=== PATIENT | female | born 1970 | race Caucasian/White ===

== ENCOUNTER → 2017-09-13 | Outpatient (CLI) | payer OTHER ==
[~2017-09-13] MED LIST: PERCOCET 5/3251 EACH PO
[2017-09-13 11:07] LABS: HEMOGLOBIN 12.3 g/dL (12.2-16.2); LYMPH # 1.7 K/mm3 (0.7-4.5); LYMPH % 31.5 % (10-50.0)
[2017-09-13 12:20] LABS: BUN 8 mg/dL (7-18)
[2017-09-13 12:24] LABS: GFR (ESTIMATED) 107 ML/MIN (59-)
== END ==
LOC: LAB 10:36
PROVIDERS: Nurse Practitioner Obstetrics & Gynecology
DX: D25.9 Leiomyoma of uterus, unspecified (principal); R10.2 Pelvic and perineal pain; N91.2 Amenorrhea, unspecified; Z01.812 Encounter for preprocedural laboratory examination

== ENCOUNTER 2017-09-15 06:09 | Observation (INO) | payer OTHER ==
[~2017-09-15] VITALS: Ht 160 cm; Wt 57.6 kg
[2017-09-15] VITALS (18 sets, daily range): BP systolic 87–120; BP diastolic 43–70
--- OUTSIDE RECORDS SUMMARY | 2017-09-15 06:14 | External Medical Summary Rpt | CCD ---
Author Author , ISMAEL GUEVARA Address Unknown Phone [email or web address] Purpose Continuity of Care Document - 03-29-2017 through 2016 Problems Code Diagnosis DOS Provider Status N92.1 EXCESSIVE 07-19-2017 AND FREQUENT MENSTRUATIO N WITH IRREGULAR CYCLE D50.9 IRON 04-15-2017 DEFICIENCY ANEMIA, UNSPECIFIED K21.9 GASTRO-ESOP 04-15-2017 HAGEAL REFLUX DISEASE WITHOUT ESOPHAGITIS K29.50 UNSPECIFIED 04-15-2017 CHRONIC GASTRITIS WITHOUT BLEEDING R00.0 TACHYCARDIA 04-15-2017 , UNSPECIFIED Z72.0 TOBACCO USE 04-15-2017 D64.9 ANEMIA, 03-29-2017 UNSPECIFIED Results Labs Lab Lab Date Result Refere Interp Status Commen Order Detail nces retati t Range on CBC w auto diff (09-13-2017 10:39) Automat = 0.0 0-0.2 complet ed 017 K/MM3 ed blood 10:39 basophi l count (count/ vo Baso % = 0.7 % 0.1-2.0 complet 017 ed 10:39 Automat = 0.1 0.0-0.4 complet ed 017 K/mm3 ed blood 10:39 eosinop hil count Automat = 2.6 % 0.1-12. complet ed 017 0 ed blood 10:39 eosinop hils/10 0 leukocy t Blood = 3.2 1.8-7.8 complet granulo 017 K/mm3 ed cytes 10:39 automat ed count (numb Granulo = 57.9 37.0-80 complet cyte 017 % .0 ed percent 10:39 age Blood = 39.8 37.0-47 complet hematoc 017 % .0 ed rit 10:39 (volume fractio n) Blood = 12.3 12.2-16 complet hemoglo 017 g/dL .2 ed bin 10:39 measure ment (mass/v olum Absolut = 1.7 0.7-4.5 complet e 017 K/mm3 ed lymphoc 10:39 yte count Lymphoc = 31.5 10-50.0 complet yte 017 % ed count, 10:39 blood, automat ed Mean = 25.4 27-31.2 complet corpusc 017 pg ed ular 10:39 hemoglo bin ([facility]) determ Automat = 30.9 31.8-35 complet ed 017 g/dl .4 ed erythro 10:39 cyte mean corpusc ular h Automat = 82.2 82.2-97 complet ed 017 fl .8 ed erythro 10:39 cyte mean corpusc ular v Absolut = 0.4 0.1-1.0 complet e 017 K/mm3 ed monocyt 10:39 e count [place] % = 7.3 % 1.7-9.3 complet 017 ed 10:39 Automat = 7.5 7.4-10. complet ed 017 fl 4 ed blood 10:39 platele t mean volume mariluz Blood = 356 142-424 complet platele 017 K/mm3 ed t count 10:39 Red = 4.85 4.2-5.4 complet blood 017 M/mm3 ed cell 10:39 count Automat = 15.9 11.5-17 complet ed 017 % .5 ed erythro 10:39 cyte distrib ution width Blood = 5.5 4.8-10. complet leukocy 017 K/MM3 8 ed triny 10:39 count (number /volume ) Basic metabolic panel (09-13-2017 10:39) Serum = 8 7-18 complet or 017 mg/dL ed plasma 10:39 urea nitroge n measure men Serum = 9.2 8.5-10. complet or 017 mg/dL 1 ed plasma 10:39 calcium measure ment (mas Serum = 102 98-107 complet or 017 mmoL/L ed plasma 10:39 chlorid e measure ment (mo Carbon = 28 21.0-32 complet dioxide 017 mmoL/L .0 ed 10:39 measure ment Serum 2 = 0.6 0.55-1. complet or 017 mg/dL 02 ed plasma 10:39 creatin ine measure ment ( Estimat = 107 59- complet ed 017 ML/MIN ed glomeru 10:39 lar filtrat ion rate (GF Comment: REFERENCE RANGE: >60 ML/MIN/1.73 SQUARE METERS Comment: If this patient is -Italian, then multiply the Comment: result by 1.210. Serum = 89 74-106 complet or 017 mg/dL ed plasma 10:39 glucose measure ment (mas Serum = 4.1 3.5-5.1 complet potassi 017 mmoL/L ed um 10:39 measure ment Serum = 135 136-145 complet sodium 017 mmoL/L ed measure 10:39 ment Serum test (09-13-2017 10:39) Serum 2 = NEG complet pregnan 017 NEGATIV ed cy test 10:39 E
--- OUTSIDE RECORDS SUMMARY | 2017-09-15 06:14 | External Medical Summary Rpt | CCD ---
Author Author [employer] Organization [employer] Address Unknown Phone Unavailable Purpose Continuity of Care Document - through 2016
--- OUTSIDE RECORDS SUMMARY | 2017-09-15 06:14 | External Medical Summary Rpt | CCD ---
Author Author , ISMAEL GUEVARA Address Unknown Phone [email or web address] Purpose Continuity of Care Document - 03-29-2017 [...] 017 K/mm3 ed monocyt 10:39 e count [place] % = 7.3 % 1.7-9.3 complet 017 [...] SQUARE METERS Comment: If this patient is -Bahamian, then multiply the Comment: result by 1.210. [...]
--- OUTSIDE RECORDS SUMMARY | 2017-09-15 06:14 | External Medical Summary Rpt | CCD ---
Demographics Preferred Language Kazakh Marital Status Unknown Jehovah'S Witness Affiliation Unknown Race Unknown Ethnic Group Unknown Author Author , AUDREY GUEVARA Address Unknown Phone Immunization No patient found.
--- OUTSIDE RECORDS SUMMARY | 2017-09-15 06:14 | External Medical Summary Rpt | CCD ---
Demographics Preferred Language Nepali Marital Status Unknown Hoahaoism Affiliation Unknown Race Unknown Ethnic Group Unknown Author Author , AUDREY GUEVARA Address Unknown Phone Immunization No patient found.
--- OUTSIDE RECORDS SUMMARY | 2017-09-15 06:15 | External Medical Summary Rpt ---
Author Author ISMAEL Carl, AUGUSTDARELL [employer] Organization [employer] Address Unknown Phone Unavailable Results Choriogonadotropin [Units/volume] in Serum or Plasma Observa Value Referen Units Interpr Notes Date tion ce etation Range Choriogon NEG No No No Sep 13 adotropin informati informati informati 2017 on in on in on in 10:39 AM [Units/vo source source source lume] in data data data Serum or Plasma Basic metabolic panel in Blood Observa Value Referen Units Interpr Notes Date tion ce etation Range Urea 7 - 18 mg/dL Normal No Sep 13 nitrogen informati 2016 [Mass/vol on in 10:39 AM ume] in source Serum or data Plasma Calcium 8.5 - mg/dL Normal No Sep 13 [Mass/vol 10.1 informati 2016 ume] in on in 10:39 AM Serum or source Plasma data Chloride 98 - 107 mmoL/L Normal No Sep 13 [Moles/vo informati 2016 lume] in on in 10:39 AM Serum or source Plasma data Carbon 21.0 - mmoL/L Normal No Sep 13 dioxide, 32.0 informati 2016 total on in 10:39 AM [Moles/vo source lume] in data Serum or Plasma Creatinin 0.55 - mg/dL Normal No Sep 13 e 1.02 informati 2016 [Mass/vol on in 10:39 AM ume] in source Serum or data Plasma Estimated 59- ML/MIN No REFERENCE Sep 13 informati RANGE: 2017 glomerula on in >60 10:39 AM r source ML/MIN/1. filtratio data 73 SQUARE n rate METERSIf (GF this patient is -A merican, then multiply theresult by 1.210. Glucose 74 - 106 mg/dL Normal No Sep 13 [Mass/vol informati 2016 ume] in on in 10:39 AM Serum or source Plasma data Potassium 3.5 - 5.1 mmoL/L Normal No Sep 13 informati 2016 [Moles/vo on in 10:39 AM lume] in source Serum or data Plasma Sodium 136 - 145 mmoL/L Low No Sep 6 [Moles/vo 2016 lume] in on in 10:39 AM Serum or source Plasma data CBC W Auto Differential panel in Blood Observa Value Referen Units Interpr Notes Date tion ce etation Range Basophils 0 - 0.2 K/MM3 Normal No Sep 6 2016 [#/volume on in 10:39 AM ] in source Blood by data Automated count Basophils 0.1 - 2.0 % Normal No Sep 6 /100 inform2016 leukocyte on in 10:39 AM s in source Blood by data Automated count Eosinophi 0.0 - 0.4 K/mm3 Normal No Sep 6 ls 2016 [#/volume on in 10:39 AM ] in source Blood by data Automated count Eosinophi 0.1 - % Normal No Sep 6 ls/100 12.0 inform2016 leukocyte on in 10:39 AM s in source Blood by data Automated count Granulocy 1.8 - 7.8 K/mm3 Normal No Sep 6 triny 2016 [#/volume on in 10:39 AM ] in source Blood by data Automated count Granulocy 37.0 - % Normal No Sep 6 triny/100 80.0 2016 leukocyte on in 10:39 AM s in source Blood by data Automated count Hematocri 37.0 - % Normal No Sep 6 t [Volume 47.0 2016 on in 10:39 AM Fraction] source of Blood data Hemoglobi 12.2 - g/dL Normal No Sep 6 n 16.2 2016 [Mass/vol on in 10:39 AM ume] in source Blood data Lymphocyt 0.7 - 4.5 K/mm3 Normal No Sep 6 es 2016 [#/volume on in 10:39 AM ] in source Unspecifi data ed specimen by Automated count Lymphocyt 10 - 50.0 % Normal No Sep 6 es 2016 [#/volume on in 10:39 AM ] in source Unspecifi data ed specimen by Automated count Erythrocy 27 - 31.2 pg Low No Sep 6 te mean 2016 corpuscul on in 10:39 AM ar source hemoglobi data n [Entitic mass] Erythrocy 31.8 - g/dl Low No Sep 13 te mean 35.4 2016 corpuscul on in 10:39 AM ar source hemoglobi data n concentra tion [Mass/vol ume] by Automated count Erythrocy 82.2 - fl Normal No Sep 13 te mean 97.8 2016 corpuscul on in 10:39 AM ar volume source [Entitic data volume] by Automated count Monocytes 0.1 - 1.0 K/mm3 Normal No Sep 132016 [#/volume on in 10:39 AM ] in source Blood by data Automated count Monocytes 1.7 - 9.3 % Normal No Sep 13 /100 2016 leukocyte on in 10:39 AM s in source Blood by data Automated count Platelet 7.4 - fl Normal No Sep 13 mean 10.4 2016 volume on in 10:39 AM [Entitic source volume] data in Blood by Automated count Platelets 142 - 424 K/mm3 Normal No Sep 132016 [#/volume on in 10:39 AM ] in source Blood data Erythrocy 4.2 - 5.4 M/mm3 Normal No Sep 6 triny 2016 [#/volume on in 10:39 AM ] in source Amniotic data fluid Erythrocy 11.5 - % Normal No Sep 13 te 17.5 2016 distribut on in 10:39 AM ion width source [Entitic data volume] by Automated count Leukocyte 4.8 - K/MM3 Normal No Sep 6 s 10.8 2016 [#/volume on in 10:39 AM ] in source Blood data
--- NOTE | 2017-09-15 09:30 | Operative Note ---
Procedure/Operative Record Procedure Date of procedure: 09/15/17 Pre-Op Dx: Menorrhagia, fibroid uterus Post-Op Dx: Menorrhagia, fibroid uterus Procedure performed: Laparoscopically assisted vaginal hysterectomy and bilateral salpingectomy Surgeon: Dr. Imtiaz Hines Hard Tile Setter Apprentice(s): Maricarmen Rivas Anesthesia: Danny Elías EBL (ml): 250 Clinical note: She is a 46-year-old lady who complains of extremely heavy periods. An ultrasound showed a fibroid uterus with at least 2 fibroids 3-1/2-4 cm in size. After having discussed the risks and benefits we elected to perform a laparoscopic-assisted vaginal hysterectomy and bilateral salpingectomy. Operative findings: She had an enlarged fibroid uterus with a 3 cm fibroid anteriorly as well as a fibroid intramurally posteriorly. The RIGHT ovary had a 4 cm ovarian cyst that was filled with straw-colored fluid. The tubes at previous been ligated. The rest the pelvis appeared normal. Operative note: She was taken the operating room where general anesthesia was found be adequate. She was prepped and draped in normal sterile fashion in the lithotomy position. A weighted speculum was placed in the vagina and the anterior lip of the cervix was grasped with a tenaculum. Gunter dilators were used to dilate the cervix to approximately 4 mm. We then inserted a Bonita uterine manipulator into the uterine cavity and insufflated the balloon. We then placed the patient and the semi- lithotomy position. I then changed gloves and injected 10 mL of 0.5 percent ropivacaine around the M like this. I made a small incision within the umbilicus and inserted a Veress needle into the abdominal cavity. The abdominal cavity was then insufflated with carbon dioxide gas to a pressure of 20 mmHg. I then inserted an 11 mm trocar under direct vision. I injected through and through at the pubic hairline, made a small incision here and inserted a 5 mm trocar under direct vision. I identified the inferior epigastric arteries on the LEFT side, went lateral to these and injected through and through. I made a small skin incision and inserted an 11 mm trocar under direct vision. This was similarly performed on the patient's RIGHT side. The LEFT round ligament was then grasped and cut with Harmonic scalpel. I then opened up the anterior aspect of the peritoneum to the midline. I then took down the LEFT tube and LEFT utero-ovarian ligament with Harmonic scalpel. I took down the posterior aspect of the broad ligament to the level of the uterosacral ligament area I skeletonize uterine arteries and then placed hemoclips on the uterine arteries. These were then cut adjacent to the cervix. I further took down the bladder anteriorly and laterally with Harmonic scalpel. I then turned my attention to the RIGHT side and took down the round ligament with Harmonic scalpel. I opened up the anterior. Peritoneum once again with Harmonic scalpel joining up with the other side. I further took down the bladder anteriorly. I then grasped the LEFT tube and cut through this with Harmonic scalpel. This was followed by the RIGHT utero-ovarian ligament. The process of the broad ligament was then taken down with Harmonic scalpel. I skeletonize uterine arteries. Hemoclips were then applied to the uterine arteries and I cut through the uterine arteries with Harmonic scalpel staying adjacent to the cervix. The bladder was then further taken down both anteriorly and laterally. At this time was noted that the uterus was completely ischemic. The distal end of the LEFT tube was then grasped and using harmonic scalpel I cut along the meso salpinx. The tube was removed through the 11 mm trocar site. This was similarly performed on the patient's RIGHT side. I then opened up the cyst on the patient's RIGHT ovary and allowed this straw-colored fluid to drain out. After once again assuring hemostasis we let the gas out of the abdomen. We then prepped the patient for the vaginal portion of her surgery. The patient was placed in lithotomy position and a weighted speculum place in the vagina. The anterior and posterior lip of the cervix were grasped with Lundy tenacula. I then injected 20 mL of 1 percent Xylocaine with epinephrine circumferentially about the cervix. I then circumscribed the cervix with knife. I opened up and the posterior cul-de-sac and then placed a long weighted speculum through the defect. The LEFT uterosacral ligament was then clamped cut suture ligated, tagged and tied. This was followed by the LEFT cardinal ligament which was clamped cut and suture ligated. I then clamped cut suture-ligated and tagged the RIGHT uterosacral ligament. This was followed by the RIGHT cardinal ligament which was clamped cut and suture ligated. I grasped the anterior vaginal mucosa and using both sharp and blunt dissection I dissected the bladder off the anterior cervix. I opened up into the anterior cul-de-sac and lysed a [place] retractor through this defect. I then clamped cut and suture ligated the remaining tissue attaching the cervix to the pelvic sidewall. This was performed bilaterally. The uterus is then completely free and was removed through the vagina. I then replaced the long weighted speculum short weighted speculum and closed the posterior cuff using running 2-0 Vicryl suture in a locked fashion. This was followed by placing a Vann suture using 0 PDS first through the posterior vagina and peritoneum and then through the LEFT pararectal fascia. I plicated across the posterior peritoneum and then through the RIGHT pararectal fascia. I then pass the suture through the peritoneum and vagina. This was LEFT to be tied at the end. The anterior peritoneum was then grasped and using 2-0 PDS suture in a pursestring fashion close the peritoneum. I then closed the vaginal mucosa using running 0 Vicryl suture in a locked fashion from anterior to posterior from LEFT to RIGHT. The Vann suture was then tied. A Dominique catheter was placed in the bladder and clear urine was seen to flow. We then changed gloves and turned our attention to the laparoscopic portion of the surgery. Once again the abdominal cavity was insufflated with carbon oxide gas. Hemostasis was assured and I then rinsed the pelvis well with saline. Once again we assured hemostasis. I elected to place 2 pieces of Surgicel on each side of the raw retroperitoneum laterally. We injected 30 mL of 0.5 percent ropivacaine into the pelvis. I let the gas out of the abdomen and once again hemostasis was assured. I reinsufflated the abdominal cavity and removed the secondary trochars under direct vision. The sites were hemostatic. The gas was let out of the abdomen and then the primary trocar and camera were removed together. No bowel seen to follow. The 11 mm trocar sites were then closed deeply with [id number] 2-0 Vicryl suture. The skin was closed with running subcuticular 4-0 Monocryl suture. The 5 mm trocar site was closed with interrupted subcuticular 4-0 Monocryl suture. The patient tolerated the procedure well and was taken to the recovery room in excellent condition. All sponge instrument and needle counts were correct. The estimated blood loss was approximately 250 mL. Conplications: None Specimens: Uterus and bilateral fallopian tubes. at 2800
--- NOTE | 2017-09-15 09:33 | Anesthesia Record ---
Anesthesia Record Part II Discharge time: 1000 Destination: Same day surgery PACU nurse assessment review? Yes Patient is: Stable Anesthesia complications? No at 0967
--- NOTE | 2017-09-15 09:33 | Anesthesia Record ---
Anesthesia Record Part I Total IV fluids: 900 EBL (ml): 200 Urine Output: 30 B/P: 110/63 % SaO2: 93 Pulse: 63 Resps: 16 Temp: 97.0 Patient is: Nasal O2, Stable Stable to PACU at: 0930 at 0932
[2017-09-15 15:15] LABS: URINE BILIRUBIN - DIPSTICK NEGATIVE (NEG); URINE BLOOD 1+ (NEG)
[2017-09-15 16:11] LABS: HEMOGLOBIN 11.1 g/dL (12.2-16.2)
[2017-09-16 04:10] VITALS: BP 114/72
[2017-09-16 07:02] LABS: LYMPH # 2.5 K/mm3 (0.7-4.5); LYMPH % 28.5 % (10-50.0)
[2017-09-16] MEDS ORDERED: PERCOCET 5/3251 EACH PO (07:46)
--- NOTE | 2017-09-16 08:15 | PHARMACY CLINIC NOTE ---
Patient Demographics Patient Demographics Admission date: 09/15/17 Date: 09/16/17 Time: 0815 Allergies Coded Allergies: No Known Allergies (09/14/17) HEIGHT- FT: 5 IN: 3.00 K.607 VTE General Information Labs: Laboratory Tests 09/16 09/15 0617 1600 Hematology Hgb (12.2 - 16.2 g/dL) 10.0 L 11.1 L Hct (37.0 - 47.0 %) 31.8 L 35.3 L Plt Count (142 - 424 K/mm3) 268 Disclaimer The following section includes nursing documentation that has been pulled in for pharmacy review. Patient's VTE score: 3 Patient's VTE Risk: LOW RISK VTE prophylaxis NQF [id number] VTE prophylaxis ordered? Yes Type of prophylaxis/treatment: Lovenox at 0815
[2017-09-16 08:57] VITALS: BP 114/72
--- NOTE | 2017-09-16 11:26 | Discharge Summary ---
Discharge Summary Admission date: 09/15/17 Discharge date: 09/16/17 Discharge diagnoses: Menorrhagia, fibroid uterus Clinical note: She is a 46-year-old lady who complains of extremely heavy periods. An ultrasound confirmed that she had a 6 cm fibroid as well as a second 3-4 cm fibroid. After having discussed the risk and benefits she elected to have a laparoscopically assisted vaginal hysterectomy and bilateral salpingectomy. Course in hospital: On September 15, 2017 she underwent a laparoscopically assisted vaginal hysterectomy and bilateral salpingectomy. She has done well postoperatively and has remained afebrile throughout her hospitalization. She is eating and drinking and ambulating. She denies any chest pain, shortness of breath or calf tenderness. On examination her chest is clear her heart sounds are normal. Her belly is soft and her incisions are healing well. She has had her Dominique catheter removed and she is voiding well. Laboratory Tests 09/16/17 0617: Sodium 137, Potassium 3.7, Chloride 104, Carbon Dioxide 28, BUN 10, Creatinine 0.6, Estimated Creat Clear 105, Estimated GFR (MDRD) 107, Glucose 100, Calcium 8.3 L, WBC 8.8, RBC 3.88 L, Hgb 10.0 L, Hct 31.8 L, MCV 82.0 L, RDW 16.3, Plt Count 268, MPV 7.6, Gran % 63.2, Gran # 5.6, Lymphocytes % 28.5, Monocytes % 7.1, Eosinophils % 1.0, Basophils % 0.3, Lymphocytes # 2.5, Monocytes # 0.6, Eosinophils # 0.1, Basophils # 0.0, PUBS MCHC 31.5 L, MCH 25.9 L 09/15/17 1600: Hgb 11.1 L, Hct 35.3 L Plans for ongoing care: She is discharged home to follow-up with me in approximately 2 weeks' time. Discharge medications She will continue with her home medications. She was given a prescription for Percocet 5/325, 20 tablets. DC/follow-up instructions She was given the usual instructions with respect to limiting her activity, driving and sexual activity. She was given instructions with respect to wound care. Condition at discharge Stable and improved at 1128
== END 2017-09-16 10:00 | disposition home or self-care (01) ==
LOC: SDC 06:09 → OB 06:12 → SDC 07:30 → OB 10:05
PROVIDERS: Nurse Practitioner Obstetrics & Gynecology
PROC: 0UT9FZZ Resection of Uterus, Via Natural or Artificial Opening With Percutaneous Endoscopic Assistance (ICD-10-PCS; principal; 2017-09-15 07:30)
PROC: 0UT7FZZ Resection of Bilateral Fallopian Tubes, Via Natural or Artificial Opening With Percutaneous Endoscopic Assistance (ICD-10-PCS; principal; 2017-09-15 07:30)
DX: D25.1 Intramural leiomyoma of uterus (principal); N83.201 Unspecified ovarian cyst, right side; N92.0 Excessive and frequent menstruation with regular cycle
CPT/HCPCS: G0238; G0378; J0131; J2405; J2710